=== PATIENT | female | born 1950 | race Caucasian/White ===

== ENCOUNTER 2018-02-02 16:32 | Emergency (ER) | payer BC, MEDICARE ==
[~2018-02-02] VITALS: Ht 162.6 cm; Wt 72.6 kg
[2018-02-02] MEDS ORDERED: FAMOTIDINE 20MG/2ML IV (PEPCID) ONE (16:35)
[2018-02-02] MEDS ORDERED: methylPREDNISolone 125 MG (Solu-MEDROL) VIAL ONE (16:35)
[2018-02-02] MEDS ORDERED: FAMOTIDINE 20MG/2ML IV (PEPCID) IVP ONE (16:45)
[2018-02-02] MEDS ORDERED: methylPREDNISolone 125 MG (Solu-MEDROL) VIAL IVP ONE (16:45)
--- NOTE | 2018-02-02 16:48 | ED General ---
General Chief Complaint: Allergic Reaction Stated Complaint: ALLERGIC REACTION Source of Information: Patient, EMS Exam Limitations: No Limitations History of Present Illness Date Seen by Provider: Feb 02, 2018 Time Seen by Provider: 16:30 Initial Comments Patient presents to ER by EMS with chief complaint that she took 2 g of amoxicillin at 1500 in anticipation of a dental surgery at 4:00. She was not feeling well and had red skin so she presented to the dentist office early. She says she has a known history of penicillin allergy but does not know what the reaction to penicillin is. She is not having any shortness of breath or when she got to the dentist office she did have a syncopal episode. She fell but does not think she struck her head because she's not having any pain in her head or neck. She's not having a swollen tongue cheeks throat. She has no stridor or wheezing. No history of pulmonary or cardiac disease except for hypertension. He was noted to have low blood pressure by EMS as in the 70s systolic. An IV was established in her right before meals and she was given IV fluids. She had been given 50 mg of Benadryl by the dentist's office by mouth. She's having no nausea fevers chills diarrhea. Allergies and Home Medications Allergies Uncoded Allergies: PENICILLIN (Allergy, Unknown, ANAPHYLAXIS, 02/02/18) Patient Home Medication List Home Medication List Reviewed: Yes Review of Systems Review of Systems Constitutional: No chills, No diaphoresis EENTM: No ear discharge, No hearing loss, No ear pain Respiratory: No cough, No short of breath, No stridor, No wheezing Cardiovascular: No chest pain, No edema Gastrointestinal: No abdominal pain, No diarrhea, No dysphagia, No nausea, No vomiting Past Jrkivrz-Znqrpg-Snlrsr Hx Patient Social History Alcohol Use: Denies Use Recreational Drug Use: No Smoking Status: Never a Smoker Past Medical History Surgeries: Yes Orthopedic Cardiac: Yes High Cholesterol, Hypertension Genitourinary: No Gastrointestinal: No Integumentary: No Physical Exam Vital Signs Vital Signs - First Documented 02/02/18 16:32 Temp 97.0 Pulse 66 Resp 18 B/P (MAP) 95/60 (72) Pulse Ox 97 O2 Delivery Room Air Capillary Refill : Height, Weight, BMI Height: '" Weight: lbs. oz. kg; BMI Method: General Appearance: Anxious Eyes: Bilateral Eye Normal Inspection, Bilateral Eye PERRL, Bilateral Eye EOMI HEENT: PERRL/EOMI, TMs Normal, Normal ENT Inspection, Pharynx Normal, Moist Mucous Membranes, Other (no tongue, oropharynx swelling.) Neck: Full Range of Motion, Normal Inspection, Non Tender, Supple Respiratory: Chest Non Tender, Lungs Clear, Normal Breath Sounds, No Accessory Muscle Use, No Respiratory Distress Cardiovascular: Regular Rate, Rhythm, No Edema Gastrointestinal: Normal Bowel Sounds, Non Tender, Soft Neurologic/Psychiatric: Alert, Oriented x3, No Motor/Sensory Deficits, Normal Mood/Affect, 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 II-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 Norm as Tested Skin: Erythema (bright, blanchable trunk neck face and upper extremities) Progress/Results/Core Measures Suspected Sepsis SIRS Temperature: Pulse: Respiratory Rate: Blood Pressure / Mean: Results/Orders My Orders Orders - RONA CAMPBELL Methylprednisolone Sod Succ (Solu-Medrol (02/02/18 16:35) Famotidine Injection (Pepcid Injection) (02/02/18 16:35) Famotidine Injection (Pepcid Injection) (02/02/18 16:45) Methylprednisolone Sod Succ (Solu-Medrol (02/02/18 16:45) Ondansetron Injection (Zofran Injectio (02/02/18 17:45) Medications Given in ED Current Medications Medications Dose Ordered Sig/Cole Route Start Time Stop Time Status Last Admin Dose Admin Famotidine 20 mg ONCE ONCE IVP 02/02/18 16:45 02/02/18 16:46 DC 02/02/18 16:39 20 MG Methylprednisolone Sodium Succinate 125 mg ONCE ONCE IVP 02/02/18 16:45 02/02/18 16:46 DC 02/02/18 16:37 125 MG Vital Signs/I&O 02/02/18 02/02/18 16:32 16:50 Temp 97.0 Pulse 66 60 Resp 18 18 B/P (MAP) 95/60 (72) 125/80 (95) Pulse Ox 97 94 O2 Delivery Room Air Room Air Capillary Refill : Progress Note #1: Time: 16:47 Progress Note Pepcid, Solu-Medrol, allow her to finish her liter fluids. By time she had the ER her blood pressures are improved to 101 systolic. Epinephrine is on standby. We will reassess her after her fluids. Observation versus outpatient on prednisone. Progress Note #2: Time: 17:32 Progress Note The patient is feeling much better. She is no longer erythematous, her blood pressure has been consistently above the 110 - 120 systolic. She's having no shortness of breath tongue swelling or throat swelling. We have offered an observation stay overnight versus going home medications and she would prefer to go home. She has her sister who was staying with her overnight. We'll set her up with an appropriate medication regimen and follow up with primary care. Departure Impression Primary Impression: Anaphylactic reaction Qualified Codes: T78.2XXA - Anaphylactic shock, unspecified, initial encounter Disposition: 01 HOME, SELF-CARE Condition: Improved Departure-Patient Inst. Decision time for Depature: 17:33 Referrals: UNKNOWN (PCP/Family) Primary Care Physician Patient Instructions: Anaphylaxis (DC) Add. Discharge Instructions: Drink plenty fluids and get some rest. 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 Take one tablet of your Zantac twice a day by mouth for the next 5 days. Take one tablet of Claritin or Zyrtec daily for the next 5 days. Take Benadryl 1-2 tablets every 6 hours as needed for the next 5 days. If you have nausea you may take the Zofran 1 tablet placed on your tongue allowed to absorb every 6 hours as needed. All discharge instructions reviewed with patient and/or family. Voiced understanding. Scripts Ondansetron (Ondansetron Odt) 4 Mg Tab.rapdis 4 MG PO Q6H PRN for NAUSEA/VOMITING, #8 TAB 0 Refills Prov: RONA CAMPBELL 02/02/18 Prednisone (Prednisone) 20 Mg Tab 40 MG PO DAILY for 5 Days, #10 TAB 0 Refills Prov: RONA CAMPBELL 02/02/18 Work/School Note: Work Release Form Date Seen in the Emergency Department: Feb 02, 2018 Return to Work: Feb 04, 2018 Restrictions: No Restrictions RONA CAMPBELL Feb 02, 2018 16:48
[2018-02-02] MEDS ORDERED: ENAL20TA (16:49)
[2018-02-02] MEDS ORDERED: HYDR25TA4 (16:49)
[2018-02-02] MEDS ORDERED: ATEN50TA (16:49)
[2018-02-02 16:50] VITALS: BP 125/80
[2018-02-02] MEDS ORDERED: ONDA4TAB11 PO (17:43)
[2018-02-02] MEDS ORDERED: PRD20T PO (17:43)
[2018-02-02] MEDS ORDERED: ONDANSETRON 4 MG/2 ML (SDV) Z0FRAN IVP ONE (17:45)
[2018-02-02 18:40] VITALS: BP 111/69
== END 2018-02-02 18:40 | disposition home or self-care (01) ==
LOC: EDUNIT# 16:32 → ER 16:33
DX: R55 Syncope and collapse (principal); T36.0X5A Adverse effect of penicillins, initial encounter; E78.00 Pure hypercholesterolemia, unspecified; I10 Essential (primary) hypertension; Z88.0 Allergy status to penicillin

== ENCOUNTER 2022-04-19 19:00 | Emergency (ER) | payer OTHER, MEDICARE ==
[~2022-04-19] VITALS: Ht 162.5 cm; Wt 72.0 kg
[~2022-04-19 19:00] MED LIST: ATEN50TA; ENAL20TA16; HYDR25TA4; ONDA4TAB11 PO; PRD20T PO
[2022-04-19 19:14] VITALS: BP 187/98
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
== END 2022-04-19 20:20 | disposition home or self-care (01) ==
LOC: EDUNIT# 19:00 → ER 19:03
DX: S09.90XA Unspecified injury of head, initial encounter (principal); E04.1 Nontoxic single thyroid nodule; V89.2XXA Person injured in unspecified motor-vehicle accident, traffic, initial encounter; Y92.410 Unspecified street and highway as the place of occurrence of the external cause
CPT/HCPCS: 70450; 72125